=== PATIENT | female | born 1995 | race Caucasian/White ===

== ENCOUNTER 2018-06-07 14:03 | Inpatient (IN) | payer OTHER ==
[2018-06-07] MEDS: SOD CHLORIDE 0.9% 1,000 ML IV (14:30)
[2018-06-07 14:54] LABS: ADD MAN DIFF? NO
[2018-06-07] MEDS: LACTATED RINGER'S 1,000 ML IV* ×2 (14:54→17:24)
[2018-06-07] MEDS: AMPICILLIN 2 GM/NS (PMX) 100 ML IV (14:54)
[2018-06-07 14:58] LABS: BASOPHILS % 0.2 % (0.0-2.0); EOSINOPHILS % 0.2 % (0.0-7.0); HEMATOCRIT 34.7 % (37.0-47.0); HEMOGLOBIN 11.2 g/dl (12.0-16.0); LYMPHOCYTES # 1.7 10^3/ul (0.8-2.9); LYMPHOCYTES % 13.2 % (15.0-51.0); MEAN CORPUSCULAR HEMOGLOBIN 22.5 pg (29.0-33.0); MEAN CORPUSCULAR HGB CONC 32.3 g/dl (32.0-37.0); MEAN CORPUSCULAR VOLUME 69.8 fl (82.0-101.0); MEAN PLATELET VOLUME 9.5 fl (7.4-10.4); MONOCYTE # 0.8 10^3/ul (0.3-0.9); NEUTROPHIL # 9.9 10^3/ul (1.6-7.5); NEUTROPHILS % 78.6 % (39.0-77.0); NUCLEATED RED BLOOD CELLS% 0.3 /100WBC (0.0-0.0); PLATELET COUNT 314 10^3/UL (140-415); RED BLOOD COUNT 4.97 10^6/ul (4.20-5.40); RED CELL DISTRIBUTION WIDTH 17.3 % (11.5-14.5)
[2018-06-07 14:58] LABS: WHITE BLOOD COUNT 12.6 10^3/ul (4.8-10.8)
[2018-06-07] MEDS ORDERED: LIDOCAINE 1% (MPF) 30 ML INJ INJ (15:00)
[2018-06-07] MEDS ORDERED: MISOPROSTOL 200 MCG TAB PR ×2 (15:00→22:00)
[2018-06-07] MEDS ORDERED: OXYTOCIN 30 UNITS/LR 500 ML IV ×2 (15:00→22:00)
[2018-06-07] MEDS ORDERED: BUTORPHANOL 2 MG INJ IV (15:00)
[2018-06-07] MEDS ORDERED: METHYLERGONOVINE 0.2 MG INJ IM ×2 (15:00→22:00)
[2018-06-07] MEDS ORDERED: CARBOPROST 250 MCG INJ IM ×2 (15:00→22:00)
[2018-06-07 15:26] LABS: PROTIME 13.3 Sec (11.9-14.9)
[2018-06-07 15:27] LABS: PARTIAL THROMBOPLASTIN TIME 27.7 Sec (23.0-35.0)
[2018-06-07] MEDS ORDERED: FENTAnyl 2MCG/ML-ROPIV 0.2% 100 ML (16:44)
[2018-06-07] MEDS ORDERED: NALOXONE (0.4 MG/ML) INJ IV (17:30)
[2018-06-07] MEDS ORDERED: DIPHENHYDRAMINE 50 MG INJ IV (17:30)
[2018-06-07] MEDS ORDERED: FENTAnyl 2MCG/ML-ROPIV 0.2% 100 ML BAG EPI (17:30)
[2018-06-07] MEDS ORDERED: ONDANSETRON 4 MG INJ IV (17:30)
[2018-06-07] MEDS: MINERAL OIL LIGHT 10 ML VIAL TOP (19:04)
[2018-06-07] MEDS: OXYTOCIN 30 UNITS/LR 500 ML IV ×2 (19:10→19:42)
[2018-06-07] MEDS: AMPICILLIN 1 GM/NS (PMX) 50 ML IV (19:10)
[2018-06-07] MEDS: LIDOCAINE 0.5% (SDV) 50 ML INJ INFIL (19:51)
[2018-06-07] MEDS ORDERED: IBUPROFEN 600 MG TAB PO (20:00)
[2018-06-07 20:46] LABS: HEPATITIS B SURFACE ANTIGEN NEGATIVE (NEGATIVE)
[2018-06-07] MEDS ORDERED: DIBUCAINE 1% 30 GM OINT PR (22:00)
[2018-06-07] MEDS ORDERED: WITCH HAZEL/GLYCERIN PAD PR (22:00)
[2018-06-07] MEDS ORDERED: ZOLPIDEM 5 MG TAB PO (22:00)
[2018-06-07] MEDS ORDERED: HYDROCODONE/APAP (5/325) TAB PO ×2 (22:00)
[2018-06-07] MEDS: CEPHALEXIN 500 MG CAP PO (23:24)
[2018-06-07] MEDS: BENZOCAINE 20% 56 ML SPRAY TOP (23:25)
[2018-06-07] MEDS: IBUPROFEN 600 MG TAB PO (23:25)
[2018-06-07] MEDS: LANOLIN 7 GM TUBE TOP (23:26)
[2018-06-08] MEDS: LACTATED RINGER'S 1,000 ML IV* ×2 (01:59→05:31)
[2018-06-08] MEDS: IBUPROFEN 600 MG TAB PO ×3 (06:11→17:34)
[2018-06-08] MEDS: CEPHALEXIN 500 MG CAP PO ×3 (06:12→17:34)
[2018-06-08 08:30] LABS: ADD MAN DIFF? NO
[2018-06-08 08:36] LABS: ABNORMAL IP MESSAGE 1; BASOPHILS % 0.2 % (0.0-2.0); EOSINOPHILS % 0.3 % (0.0-7.0); HEMATOCRIT 29.2 % (37.0-47.0); LYMPHOCYTES % 18.7 % (15.0-51.0); MEAN CORPUSCULAR HEMOGLOBIN 22.3 pg (29.0-33.0); MEAN CORPUSCULAR HGB CONC 30.8 g/dl (32.0-37.0); MEAN CORPUSCULAR VOLUME 72.3 fl (82.0-101.0); MEAN PLATELET VOLUME 10.2 fl (7.4-10.4); MONOCYTE # 1.7 10^3/ul (0.3-0.9); MONOCYTES % 10.4 % (0.0-11.0); NEUTROPHILS % 68.7 % (39.0-77.0); NUCLEATED RED BLOOD CELLS% 0.2 /100WBC (0.0-0.0); PLATELET COUNT 241 10^3/UL (140-415); RED BLOOD COUNT 4.04 10^6/ul (4.20-5.40); RED CELL DISTRIBUTION WIDTH 17.6 % (11.5-14.5)
[2018-06-08 08:40] LABS: POSITIVE DIFF @See below
[2018-06-08] MEDS: SENNA/DOCUSATE NA (8.6MG/50MG) TAB PO ×2 (10:39→21:25)
[2018-06-08] MEDS: MAGNESIUM HYDROXIDE 30ML CUP PO ×2 (10:39→21:24)
[2018-06-08 20:16] LABS: RAPID PLASMA REAGIN NONREACTIVE (NR)
[2018-06-09] MEDS: IBUPROFEN 600 MG TAB PO ×3 (00:13→11:55)
[2018-06-09] MEDS: CEPHALEXIN 500 MG CAP PO ×3 (00:13→11:55)
[2018-06-09] MEDS: MAGNESIUM HYDROXIDE 30ML CUP PO (09:00)
[2018-06-09] MEDS: SENNA/DOCUSATE NA (8.6MG/50MG) TAB PO (09:00)
[2018-06-09 09:14] LABS: ADD MAN DIFF? NO
[2018-06-09 09:21] LABS: WHITE BLOOD COUNT 14.9 10^3/ul (4.8-10.8)
[2018-06-09 09:21] LABS: BASOPHIL # 0.1 10^3/ul (0.0-0.1); BASOPHILS % 0.3 % (0.0-2.0); EOSINOPHILS # 0.1 10^3/ul (0.0-0.5); EOSINOPHILS % 0.9 % (0.0-7.0); HEMATOCRIT 30.2 % (37.0-47.0); HEMOGLOBIN 9.2 g/dl (12.0-16.0); LYMPHOCYTES # 3.1 10^3/ul (0.8-2.9); LYMPHOCYTES % 20.9 % (15.0-51.0); MEAN CORPUSCULAR HEMOGLOBIN 22.3 pg (29.0-33.0); MEAN CORPUSCULAR HGB CONC 30.5 g/dl (32.0-37.0); MEAN CORPUSCULAR VOLUME 73.3 fl (82.0-101.0); MEAN PLATELET VOLUME 9.9 fl (7.4-10.4); MONOCYTE # 0.9 10^3/ul (0.3-0.9); MONOCYTES % 6.3 % (0.0-11.0); NEUTROPHIL # 10.1 10^3/ul (1.6-7.5); NUCLEATED RED BLOOD CELLS% 0.2 /100WBC (0.0-0.0); PLATELET COUNT 260 10^3/UL (140-415); RED BLOOD COUNT 4.12 10^6/ul (4.20-5.40); RED CELL DISTRIBUTION WIDTH 18.6 % (11.5-14.5)
[2018-06-09] MEDS: MEASLES,MUMPS,RUBELLA VACCINE INJ SC* (09:49)
[2018-06-09] MEDS: VARICELLA VACCINE LIVE/PF 1,350 UNIT/0.5 ML ML SC* (09:49)
[2018-06-09] MEDS: DIPHTH/TET/ACEL PERTUSS (ADULT) 0.5 ML VIAL IM* (09:50)
== END 2018-06-09 14:50 | disposition home or self-care (01) | DRG 807 ==
LOC: OBT 14:03 → L-D 14:05 → OBT 14:19 → L-D 14:19 → PP1 21:23
PROVIDERS: Obstetrics & Gynecology
PROC: 10E0XZZ Delivery of Products of Conception, External Approach (ICD-10-PCS; principal; 2018-06-07)
PROC: 0UQGXZZ Repair Vagina, External Approach (ICD-10-PCS; 2018-06-07)
PROC: 3E033VJ Introduction of Other Hormone into Peripheral Vein, Percutaneous Approach (ICD-10-PCS; 2018-06-07)
DX: O71.4 Obstetric high vaginal laceration alone (principal); Z37.0 Single live birth; O69.81X0 Labor and delivery complicated by cord around neck, without compression, not applicable or unspecified; Z3A.38 38 weeks gestation of pregnancy
CPT/HCPCS: 62319; 85025; 85610; 85730; 86592; 86850; 86900; 86901; 87340; 90715; 90716; 99464

== ENCOUNTER 2018-06-14 17:25 | Emergency (ER) | payer OTHER ==
[2018-06-14] MEDS: IBUPROFEN 600 MG TAB PO (18:03)
[2018-06-14 18:24] LABS: ADD UMIC YES; UR ASCORBIC ACID NEGATIVE (NEGATIVE); UR BILIRUBIN (Dip) NEGATIVE (NEGATIVE); UR BLOOD (Dip) 3+ mg/dL (NEGATIVE); UR CLARITY CLOUDY (CLEAR); UR COLOR YELLOW (YELLOW); UR GLUCOSE (Dip) NEGATIVE (NEGATIVE); UR KETONES (Dip) NEGATIVE (NEGATIVE); UR LEUKOCYTE ESTERASE (Dip) 2+ Leu/ul (NEGATIVE); UR NITRITE (Dip) NEGATIVE (NEGATIVE); UR RBC > 182 /HPF (0-5); UR SPECIFIC GRAVITY (Dip) 1.018 (1.003-1.030); UR SQUAMOUS EPITHELIAL CELL FEW /HPF (FEW); UR TOTAL PROTEIN (Dip) 2+ mg/dl (NEGATIVE); UR UROBILINOGEN (Dip) NEGATIVE (NEGATIVE); UR WBC > 182 /HPF (0-5)
[2018-06-14] MEDS: SOD CHLORIDE 0.9% 1,000 ML IV (19:51)
[2018-06-14 20:05] LABS: ADD MAN DIFF? NO
[2018-06-14 20:17] LABS: WHITE BLOOD COUNT 13.5 10^3/ul (4.8-10.8)
[2018-06-14 20:17] LABS: BASOPHIL # 0.1 10^3/ul (0.0-0.1); BASOPHILS % 0.4 % (0.0-2.0); EOSINOPHILS # 0.2 10^3/ul (0.0-0.5); EOSINOPHILS % 1.2 % (0.0-7.0); HEMATOCRIT 36.5 % (37.0-47.0); HEMOGLOBIN 11.3 g/dl (12.0-16.0); LYMPHOCYTES # 3.6 10^3/ul (0.8-2.9); LYMPHOCYTES % 26.9 % (15.0-51.0); MEAN CORPUSCULAR HEMOGLOBIN 22.2 pg (29.0-33.0); MEAN CORPUSCULAR VOLUME 71.6 fl (82.0-101.0); MEAN PLATELET VOLUME 9.1 fl (7.4-10.4); MONOCYTE # 0.8 10^3/ul (0.3-0.9); MONOCYTES % 6.1 % (0.0-11.0); NEUTROPHIL # 8.4 10^3/ul (1.6-7.5); PLATELET COUNT 424 10^3/UL (140-415); RED CELL DISTRIBUTION WIDTH 18.6 % (11.5-14.5)
[2018-06-14 20:29] LABS: ALANINE AMINOTRANSFERASE 26 IU/L (13-69); ALBUMIN 3.7 g/dl (3.3-4.9); ALBUMIN/GLOBULIN RATIO 1.19; ALKALINE PHOSPHATASE 171 IU/L (42-121); ANION GAP 8 (5-13); ASPARTATE AMINO TRANSFERASE 23 IU/L (15-46); BILIRUBIN,INDIRECT 0.3 mg/dl (0-1.1); BILIRUBIN,TOTAL 0.3 mg/dl (0.2-1.3); BLOOD UREA NITROGEN 17 mg/dl (7-20); CALCIUM 9.4 mg/dl (8.4-10.2); CARBON DIOXIDE 21 mmol/L (21-31); CHLORIDE 111 mmol/L (97-110); CREATININE 0.58 mg/dl (0.44-1.00); Estimated GFR > 60 mL/min (>60); GLUCOSE 95 mg/dl (70-220); POTASSIUM 4.6 mmol/L (3.5-5.1); SODIUM 140 mmol/L (135-144); TOTAL PROTEIN 6.8 g/dl (6.1-8.1)
[2018-06-14] MEDS: CEFTRIAXONE 1 GM/50 ML (PMX) 50 ML IVPB ×2 (21:19→21:35)
== END 2018-06-14 22:46 | disposition home or self-care (01) ==
LOC: FTE 17:25
DX: N71.9 Inflammatory disease of uterus, unspecified (principal)
CPT/HCPCS: 36415; 76856; 80053; 81001; 85025; 96361; 96365; 99285-25